=== PATIENT | female | born 1995 | race African-American/Black ===

== ENCOUNTER 2025-03-19 18:42 | Emergency (ER) | payer OTHER, SELFPAY ==
[2025-03-19 19:05] VITALS: BP 180/90; PULSE 120; RESP 16; TEMP 36.3; O2SAT 99
--- NOTE | 2025-03-19 19:08 | ED_ITS ---
HPI - URI/Sore Throat General Chief Complaint: Upper Respiratory Infection Stated Complaint: Flu like symptoms Time Seen by Provider: 03/19/25 19:08 Source: patient and RN notes reviewed Mode of arrival: ambulatory Limitations: no limitations History of Present Illness HPI Narrative: 29-year-old female presented for complaint of headache, chills, and body aches. Onset today. Has not taken anything for symptoms. Denies sob,wheezing, n/v/d/f/c. Noted to have elevated bp on arrival; states she was seen by pcp one month ago with elevated reading in similar range. States they did not start medication but advised lifestyle modification. MD elicited complaint: cough Related Data Home Medications ?Medication ?Instructions ?Recorded ?Confirmed ?Last Taken ?Type semaglutide 7 mg tablet (Rybelsus) mg PO 03/19/25 Unk nown History Allergies Allergy/AdvReac Type Severity Reaction Status Date / Time exenatide (From Byetta) Allergy Unknown Unknown Verified 03/19/25 19:00 liraglutide (From Victoza) Allergy Unknown Verified 03/19/25 19:00 Review of Systems Review of Systems: per HPI Exam Narrative: GENERAL: Ill-appearing, nontoxic no acute distress. EYES: conjunctivae clear ENT: Mucous membranes moist. TM pearly carlin with dull light reflex bilaterally; no tragal tenderness. Oropharynx not erythematous without lesions or exudate, no drooling, no hoarseness, no trismus, uvula midline. No tripod positioning, muffled voice, soft palate or pharyngeal wall bulging NECK: Supple. No lymphadenopathy CHEST: Clear to auscultation, breath sounds equal. No wheezing, rhonchi, rales, or stridor. No respiratory distress, speaks in full sentences. HEART: tachycardic and Regular SKIN: Warm, dry, no rash. NEURO: Alert and oriented x3. PSYCH: Normal mood and affect Course Course Level of Care: Express Care Visit Vital Signs Vital signs: Vital Signs Temperature 97.3 F L 03/19/25 19:05 Pulse Rate 120 H 03/19/25 19:05 Respiratory Rate 16 03/19/25 19:05 Blood Pressure 180/90 H 03/19/25 19:05 Pulse Oximetry 99 03/19/25 19:05 Temperature 97.3 F L 03/19/25 19:05 Pulse Rate 120 H 03/19/25 19:05 Respiratory Rate 16 03/19/25 19:05 Blood Pressure 180/90 H 03/19/25 19:05 Pulse Oximetry 99 03/19/25 19:05 MDM MDM Narrative Medical decision making narrative: Discussed physical exam findings, negative flu and covid however high suspicion of false neg as sx started just today. Advised supportive measures and signs/symptoms to go to the ER. Pt is appropriate for outpt treatment and f/u. Differential Diagnosis Differential Diagnosis: Influenza, covid, sinusitis, OM, strep pharyngitis, URI Discharge Plan Discharge Clinical Impression: Viral infection, Elevated blood pressure reading Patient Disposition: Home Condition: Stable Instructions: Influenza (ED) Additional Instructions: Your rapid covid/flu test was negative today. It may be too early to detect the virus, therefore we recommend retesting at home in 1-2 days Continue to follow general precautions: frequent handwashing, wear a mask, isolate/social distance, and avoid crowds if you have a fever. You must be fever free for 24 hours without the use of fever reducing medication (Tylenol/ibuprofen) before returning to work/school/crowds. Rest. Drink plenty of fluids. Tylenol 1000mg every 8 hours as needed for pain/fever Flonase spray and Zyrtec (or Claritin/Marly) for sinus pressure/congestion over the counter Cough syrup may cause drowsiness; avoid driving or take it at night time. Follow up with your primary care provider in 3 days regarding elevated blood pressure reading Go to the ER for worsening symptoms or concerns Patient Language: Italian Prescriptions: New oseltamivir [Tamiflu] 75 mg capsule 75 mg PO Q12H 5 Days Qty: 10 0RF No Action Rybelsus 7 mg tablet PO Follow-up/Referrals: UNKNOWN,DOCTOR [Primary Care Provider] Stand Alone Forms: Work/School Release IP Time of Disposition: :25
[2025-03-19 19:23] LABS: EDCOVIDSCREEN Negative (Negative); EDINFLUASCREEN Negative (Negative); EDINFLUBSCREEN Negative (Negative)
[2025-03-19] MEDS: ACETAMINOPHEN 500 MG TABLET 1000 MG PO (19:26)
[2025-03-19 19:35] VITALS: BP 175/90
== END 2025-03-19 19:35 | disposition home or self-care (01) ==
PROVIDERS: Emergency Provider Nurse Practitioner Family
DX: B34.9 Viral infection, unspecified (principal); R03.0 Elevated blood-pressure reading, without diagnosis of hypertension
CPT/HCPCS: 87426; 87804; 99213; A9270; G0463